=== PATIENT | male | born 1955 | race Caucasian/White ===

== ENCOUNTER 2024-05-18 17:31 | Emergency (ER) | payer OTHER ==
[2024-05-18 17:37] VITALS: BP 150/87; PULSE 97; RESP 18; TEMP 97.7; BMI 28.0
[2024-05-18 19:57] LABS: EPI CELLS 6 /uL (0-25.1); HYALINE CASTS 4 /uL (0-3.1); PH,URINE 5.5 (5.0-8.0); URINE APPEARANCE CLOUDY; URINE BACTERIA 4 /uL (0-1359); URINE BILIRUBIN NEGATIVE (NEGATIVE); URINE COLOR YELLOW; URINE GLUCOSE (UA) 2+ (NEGATIVE); URINE KETONE NEGATIVE (NEGATIVE); URINE LEUK ESTERASE 2+ (NEGATIVE); URINE NITRITE NEGATIVE (NEGATIVE); URINE PROTEIN 2+ (NEGATIVE); URINE RBC 976 /uL (0-23.9); URINE UROBILINOGEN 0.2 mg/dL (0.2-1.0); URINE WBC 833 /uL (0-25.8)
== END 2024-05-18 19:30 | disposition left against medical advice (07) ==
LOC: JER 17:31
DX: R33.9 Retention of urine, unspecified (principal)
CPT/HCPCS: 81003; 93005; 93010; 99284-25